=== PATIENT | male | born 2000 | race Caucasian/White ===

== ENCOUNTER 2018-09-19 07:51 | Emergency (ER) | payer BC ==
[2018-09-19 08:06] VITALS: BP 108/60
[2018-09-19] MEDS ORDERED: CEPHALEXIN 500 MG CAPSULE PO ONE (08:58)
[2018-09-19] MEDS ORDERED: SULFAMETHOXAZOLE/TRIMETHOPRIM 800-160 MG TABLET PO ONE (08:58)
--- NOTE | 2018-09-19 09:00 | ER Document Report ---
HPI - HPI Patient complains to provider of: Skin infection Onset: Other - Past several days Onset/Duration: Worse Pain Level: 1 Context: Patient complains of skin lesions to bilateral forearms that are showing up within his new tattoos to bilat forearms. Patient denies any fever or history of MRSA. Associated Symptoms: denies: Fever Exacerbated by: Denies Relieved by: Denies Similar symptoms previously: No Recently seen / treated by doctor: No - ROS ROS below otherwise negative: Yes Systems Reviewed and Negative: Yes All other systems reviewed and negative - CONSTITUTIONAL Constitutional: DENIES: Fever, Chills - MUSCULOSKELETAL Musculoskeletal: REPORTS: Extremity pain - DERM Skin Color: Erythema Past Medical History - General Information source: Patient - Social History Smoking Status: Current Every Day Smoker Smoking Education Provided: Yes Frequency of alcohol use: Occasional Drug Abuse: Marijuana Occupation: Construction Family History: Reviewed & Not Pertinent Patient has suicidal ideation: No Patient has homicidal ideation: No - Medical History Medical History: Negative Surgical Hx: Negative Vertical Provider Document - CONSTITUTIONAL Agree With Documented VS: Yes Exam Limitations: No Limitations General Appearance: WD/WN, No Apparent Distress - HEENT HEENT: Atraumatic, Normocephalic - NECK Neck: Normal Inspection - RESPIRATORY Respiratory: No Respiratory Distress - CARDIOVASCULAR Pulses: Normal: Radial - MUSCULOSKELETAL/EXTREMETIES Musculoskeletal/Extremeties: MAEW - NEURO Level of Consciousness: Awake, Alert, Appropriate Motor/Sensory: No Motor Deficit - DERM Integumentary: Warm, Dry, Rash - Scattered erythematous lesions to bilateral upper extremities, lesions noted within recent tattoos to bilateral upper arms, no fluctuance, no induration, no drainable abscess Course - Vital Signs Vital signs: Temp Pulse Resp BP Pulse Ox 97.6 F 80 16 108/60 100 09/19/18 08:05 09/19/18 08:05 09/19/18 08:05 09/19/18 08:05 09/19/18 08:05 Discharge - Discharge Clinical Impression: Cellulitis Qualifiers: Site of cellulitis: extremity Site of cellulitis of extremity: upper extremity Laterality: unspecified laterality Qualified Code(s): L03.119 - Cellulitis of unspecified part of limb Condition: Stable Disposition: HOME, SELF-CARE Instructions: Bactroban Ointment ([facility]), Cellulitis ([facility]), Cephalexin ([facility]), Trimethoprim-Sulfa ([facility]) Additional Instructions: Return immediately for any new or worsening symptoms Followup with your primary care provider, call tomorrow to make a followup appointment Prescriptions: Cephalexin Monohydrate [Keflex 500 mg Capsule] 500 mg PO Q6H 5 Days capsule Mupirocin [Bactroban 2% Ointment 22 gm] 1 applic TP TID #22 gm Sulfamethoxazole/Trimethoprim [Bactrim Ds Tablet] 1 each PO BID #20 tablet Forms: Smoking Cessation Education Referrals: [facility] [Provider Group] - Follow up as needed
== END 2018-09-19 09:10 | disposition home or self-care (01) ==
LOC: ER 07:51
DX: L03.119 Cellulitis of unspecified part of limb (principal); F17.200 Nicotine dependence, unspecified, uncomplicated
CPT/HCPCS: 99283

== ENCOUNTER 2018-10-10 18:15 | Emergency (ER) | payer BC ==
[2018-10-10] MEDS ORDERED: DEXAMETHASONE SOD PHOS INJ 10 MG/1 ML VIAL IV ONE (18:30)
--- NOTE | 2018-10-10 18:30 | ER Document Report ---
ED Medical Screen (RME) - General TRAVEL OUTSIDE OF THE [place] IN LAST 30 DAYS: No <STEWART PETER - Last Filed: 10/10/18 18:44> <EDITH ARNOLD - Last Filed: 10/10/18 18:57> - General Chief Complaint: Sore Throat Stated Complaint: SORE THROAT Time Seen by Provider: 10/10/18 18:26 Notes: 17-year-old male who presents today with complaints of throat pain which began 2 days ago. Patient states it hurts to swallow. Patient also complains of some right-sided facial pain. Patient states he has a mild cough which is baseline for him which he believes is from smoking. Patient denies any fevers or congestion. Patient does admit to using psychedelics last night but denies any history of IV drug abuse. I have greeted and performed a rapid initial assessment of this patient. A comprehensive ED assessment and evaluation of the patient, analysis of test results, and completion of the medical decision making process will be conducted by additional ED providers. Review of systems: Constitutional: Denies: Fevers EENT: Sore throat. Hurts to swallow. Denies: Nasal Congestion Cardiovascular: No symptoms reported Respiratory: Cough. Gastrointestinal: No symptoms reported Genitourinary: No symptoms reported Musculoskeletal: No symptoms reported Skin: No symptoms reported Hematologic/Lymphatic: No symptoms reported Neurological/Psychological: No symptoms reported Yes All other systems reviewed and negative PHYSICAL EXAM GENERAL: Alert, interacts well. No acute distress. HEAD: Normocephalic, atraumatic. EYES: Pupils equal, round, and reactive to light. Extraocular movements intact. ENT: Oral mucosa moist, tongue midline. Right peritonsillar fullness. Deviation of the uvula to the left. White discharge and exudate on the right tonsil. NECK: Full range of motion. Supple. Trachea midline. LUNGS: No respiratory distress. EXTREMITIES: Moves all 4 extremities spontaneously. NEUROLOGICAL: Alert and oriented x3. Normal speech. PSYCH: Normal affect, normal mood. SKIN: Warm, dry, normal turgor. No rashes or lesions noted. (STEWART PETER) - Related Data Allergies/Adverse Reactions: No Known Allergies Allergy (Verified 09/19/18 07:56) Past Medical History - Social History Chew tobacco use (# tins/day): No Frequency of alcohol use: Occasional Drug Abuse: Marijuana Renal/ Medical History: Denies: Hx Peritoneal Dialysis <STEWART PETER - Last Filed: 10/10/18 18:44> Physical Exam <STEWART PETER - Last Filed: 10/10/18 18:44> <EDITH ARNOLD - Last Filed: 10/10/18 18:57> - Vital signs Vitals: Temp Pulse Resp BP Pulse Ox 98.2 F 80 18 117/66 98 10/10/18 18:19 10/10/18 18:19 10/10/18 18:19 10/10/18 18:19 10/10/18 18:19 Course - Laboratory Result Diagrams: 10/10/18 18:45 <EDITH ARNOLD - Last Filed: 10/10/18 18:57> - Vital Signs Vital signs: Temp Pulse Resp BP Pulse Ox 98.2 F 80 18 117/66 98 10/10/18 18:19 10/10/18 18:19 10/10/18 18:19 10/10/18 18:19 10/10/18 18:19 Scribe Documentation - Scribe Written by Scribe:: Mary Kay Ying, 10/10/2018 1848 acting as scribe for :: Rossy <STEWART PETER - Last Filed: 10/10/18 18:44>
[2018-10-10] MEDS ORDERED: KETOROLAC TROMETHAMINE INJ/PF 30 MG/1 ML SDV IV ONE (18:31)
--- NOTE | 2018-10-10 18:52 | ER Document Report ---
ED General - General Chief Complaint: Sore Throat Stated Complaint: SORE THROAT Time Seen by Provider: 10/10/18 18:26 Notes: Patient is a 17-year-old male that presents to the emergency department for chief complaint of sore throat. Patient states he started having the symptoms yesterday, with pain with swallowing, and decreased appetite as a result. Denies any fevers, chills, night sweats, denies any sick contacts he is aware of. Describes the pain in his throat is a 2 out of 10, as an aching burning sensation that is constant. Worse with swallowing foods. Denies prior history of peritonsillar abscess. Denies any difficulty breathing, wheezing, or shortness of breath. Past Medical History: Denies chronic medical conditions Past Surgical History: Denies surgical history Social History: Admits to smoking cigarettes, and occasional alcohol use, denies illicit drug use. Family History: Reviewed and noncontributory for presenting illness Allergies: Reviewed, see documented allergy list. REVIEW OF SYSTEMS: Other than noted above, the 12 point review of systems was reviewed with the patient and were negative, all pertinent findings are included in the HPI. PHYSICAL EXAMINATION: Vital signs reviewed, nursing noted reviewed. GENERAL: Well-appearing, well-nourished and in no acute distress. HEAD: Atraumatic, normocephalic. EYES: Eyes appear normal, extraocular movements intact, sclera anicteric, conjunctiva are normal. ENT: nares patent, there is presence of a right peritonsillar abscess, causing uvular shift towards the left, normal speech, airway patent. Moist mucous membranes. NECK: Normal range of motion, supple without lymphadenopathy, no stridor LUNGS: Breath sounds clear to auscultation bilaterally and equal. No wheezes rales or rhonchi. HEART: Regular rate and rhythm without murmurs ABDOMEN: Soft, nontender, normoactive bowel sounds. No rebound, guarding, or rigidity. No masses appreciated. EXTREMITIES: Nontender, good range of motion, no pitting or edema. NEUROLOGICAL: No focal neurological deficits. Moves all extremities spontaneously Motor and sensory grossly intact on exam. PSYCH: Normal mood, normal affect. SKIN: Warm, Dry, normal turgor, no rashes or lesions noted on exposed skin TRAVEL OUTSIDE OF THE [place] IN LAST 30 DAYS: No - Related Data Allergies/Adverse Reactions: No Known Allergies Allergy (Verified 09/19/18 07:56) Past Medical History - Social History Smoking Status: Current Every Day Smoker Chew tobacco use (# tins/day): No Frequency of alcohol use: Occasional Drug Abuse: Marijuana Family History: Reviewed & Not Pertinent Patient has suicidal ideation: No Patient has homicidal ideation: No Renal/ Medical History: Denies: Hx Peritoneal Dialysis Physical Exam - Vital signs Vitals: Temp Pulse Resp BP Pulse Ox 98.2 F 80 18 117/66 98 10/10/18 18:19 10/10/18 18:19 10/10/18 18:19 10/10/18 18:19 10/10/18 18:19 Course - Re-evaluation Re-evalutation: Patient seen and examined, vital signs reviewed, afebrile. On the patient's exam, he is noted to have clinical presentation consistent with a peritonsillar abscess, CT imaging revealed a right peritonsillar abscess. Blood work demonstrated leukocytosis, which would be expected with a peritonsillar abscess, his rapid strep was negative, patient was dosed with IV Unasyn, I discussed risks and benefits of needle aspiration of the patient's abscess, which he agreed to, procedure described in procedure section. Patient was advised to follow-up with ear nose and throat, make an appointment for tomorrow, and if he had any worsening symptoms such as worsening pain, difficulty swallowing or breathing, to immediately return to the emergency department which he is agreeable to. - Vital Signs Vital signs: Temp Pulse Resp BP Pulse Ox 98.2 F 80 18 117/66 98 10/10/18 18:19 10/10/18 18:19 10/10/18 18:19 10/10/18 18:19 10/10/18 18:19 - Laboratory Result Diagrams: 10/10/18 18:45 Laboratory results interpreted by me: 10/10/18 18:45 WBC 14.1 H Absolute Neutrophils 10.2 H Procedures - Incision and Drainage Right Type: Simple Anesthetic type: Other - 2% lidocaine nebulized Incision Method: Incision made with needle Amount/type of drainage: 4.5ml Notes: After explained the risks and benefits of the procedure. Patient's oropharynx was anesthetized with 2% inhaled lidocaine, and using an 18-gauge needle, guarded, was inserted to the area of fluctuance, to the right peritonsillar region, using this method, 4.5 cc of purulent fluid was obtained, and sent for culture, patient tolerated this well, he used saline swishes, and had minimal bleeding. Patient monitored post procedure, and did well. Discharge - Discharge Clinical Impression: Peritonsillar abscess Condition: Stable Disposition: HOME, SELF-CARE Instructions: Sore Throat ([facility]) Additional Instructions: Please monitor for worsening pain or swelling in your throat, take the antibiotics as prescribed, please call ear nose and throat, tomorrow to schedule an appointment as soon as possible. If you have any worsening symptoms , fevers, or difficulty swallowing, or difficulty breathing, please return to the emergency department immediately. Prescriptions: Amox Tr/Potassium Clavulanate [Augmentin 875-125 Tablet] 1 tab PO BID #20 tablet Referrals: MICAH RAY DO [ASSOCIATE] - Follow up tomorrow (EAR, NOSE, and THROAT.)
[2018-10-10 18:59] LABS: ABSOLUTE EOSINOPHILS # (AUTO) 0.2 10^3/uL (0.0-0.6); ABSOLUTE LYMPHOCYTES (AUTO) 2.4 10^3/uL (0.5-4.7); ABSOLUTE MONOCYTES (AUTO) 1.3 10^3/uL (0.1-1.4); ABSOLUTE NEUT (AUTO) 10.2 10^3/uL (1.7-8.2); BASOPHILS % (AUTO) 0.3 % (0-2); EOSINOPHILS % (AUTO) 1.1 % (0-6); HEMATOCRIT 42.6 % (37.9-51.0); HEMOGLOBIN 14.7 g/dL (13.5-17.0); LYMPHOCYTES % (AUTO) 17.1 % (13-45); MEAN CORPUSCULAR HEMOGLOBIN 29.1 pg (27.0-33.4); MEAN CORPUSCULAR HGB CONC 34.4 g/dL (32.0-36.0); MEAN CORPUSCULAR VOLUME 85 fl (80-97); MONOCYTES % (AUTO) 9.3 % (3-13); PLATELET COUNT 249 10^3/uL (150-450); RED BLOOD COUNT 5.04 10^6/uL (4.35-5.55); RED CELL DISTRIBUTION WIDTH 13.2 % (11.5-14.0); SEGMENTED NEUTROPHILS % (AUTO) 72.2 % (42-78); TOTAL CELLS COUNTED % (AUTO) 100 %; WHITE BLOOD COUNT 14.1 10^3/uL (4.0-10.5)
--- NOTE | 2018-10-10 19:29 | RADIOLOGY REPORT (SQ) ---
EXAM DESCRIPTION: CT SOFT TISSUE NECK WITH COMPLETED DATE/TIME: 10/10/2018 7:07 pm REASON FOR STUDY: right peritonsillar swelling, uvular deviation COMPARISON: None. TECHNIQUE: Post IV contrasted scanning from skull base through lung apices with review of bone, soft tissue and lung windows. Reconstructed coronal and sagittal MPR images reviewed. All images stored on PACS. All CT scanners at this facility use dose modulation, iterative reconstruction, and/or weight based d osing when appropriate to reduce radiation dose to as low as reasonably achievable (ALARA). [facility]: Dose Right [facility]: CareDose [facility]: Dose Right [facility]: Teradose 4D [facility]: [employer] CONTRAST TYPE AND DOSE: contrast/concentration: Isovue 350.00 mg/ml; Total Contrast Delivered: 75.0 ml; Total Saline Delivered: 55.0 ml RENAL FUNCTION: None required. The patient is less than 50 years old. RADIATION DOSE: . LIMITATIONS: There is streak artifact from the patient's dental amalgam. FINDINGS: SKULL BASE: Intact. MAJOR SALIVARY GLANDS: No solid or cystic masses. No inflammatory changes. LYMPHADENOPATHY: There are bilateral enlarged cervical lymph nodes along the jugular chains measuring up to 13 mm in short axis on the right and 12 mm in short axis on the left. MUCOSAL MASSES OR ASYMMETRY: There is enlargement of the palatine tonsils. There is a hypodense patrice ection with peripheral enhancement at the right tonsil measuring 2.1 x 1.9 x 4.1 cm. LARYNX/CORDS: No abnormal findings. VASCULAR STRUCTURES: The major vessels are patent. LUNG APICES: Clear. BONES: Intact. THYROID: Normal size. No masses. PARANASAL SINUSES: Clear. IMPRESSION: 1. Enlarged palatine tonsils with a 2.1 x 1.9 x 4.1 cm right peritonsillar abscess. 2. Bilateral cervical adenopathy, may be reactive. TECHNICAL DOCUMENTATION: JOB ID: [id number] CT-64 Quality ID # [id number]: Final reports with documentation of one or more dose reduction techniques (e.g., Au tomated exposure control, adjustment of the mA and/or kV according to patient size, use of iterative reconstruction technique) 2010 [employer]- All Rights Reserved Reading location - IP/workstation name: [email or web address]
[2018-10-10] MEDS ORDERED: LIDOCAINE 2% INJ-PF (20 MG/ML) 10 ML AMPUL NEB ONE (19:52)
[2018-10-10] MEDS ORDERED: AMPICILLIN SOD/SULBACTAM 3 GM VIAL IV ONE (19:53)
[2018-10-10 21:30] VITALS: BP 106/59
== END 2018-10-10 21:43 | disposition home or self-care (01) ==
LOC: ER 18:15
PROC: 0C9PXZZ Drainage of Tonsils, External Approach (ICD-10-PCS; principal; 2018-10-10)
DX: J36 Peritonsillar abscess (principal); R13.10 Dysphagia, unspecified; R63.0 Anorexia; F17.210 Nicotine dependence, cigarettes, uncomplicated
CPT/HCPCS: 94640; 99284; 96374; 96375; 36415; 87070 ×2; 87205; 87880; 85025; 87075; 87077; 86308; 70491; 42700; J0295; J1885; J3490; J1100